=== PATIENT | female | born 1975 | race Two or more races ===

== ENCOUNTER 2023-03-01 11:05 | Emergency (ER) | payer BC, SELFPAY ==
[2023-03-01 11:13] VITALS: BP 142/81; PULSE 70; RESP 20; TEMP 36.5; O2SAT 99; BMI 33.3
--- NOTE | 2023-03-01 11:27 | CT_ITS ---
The [address] [address] Patient Name: LUCI CARLIN MRN: [id number] date: 1975 Sex: F Assigned Patient Location: ER Current Patient Location: ER Accession/Order Number: [id number] Exam Date: 03/01/2023 11:30 Report Date: 03/01/2023 11:57 At the request of: NYLA DEVLIN Procedure: CT head/brain wo con CT head/brain wo con, 03/01/2023 11:30 AM EST INDICATION: BROWNE intermittent for three months COMPARISON: Noncontrast CT of the head 10/21/2012 TECHNIQUE: Axial CT images of the brain from skull base to vertex, including portions of the face and sinuses, were obtained without contrast. Multiplanar reformatted images were generated and reviewed as needed. FINDINGS: No intracranial mass, hydrocephalus, midline shift or acute hemorrhage. No extra-axial collection. Kirkland-white matter differentiation is preserved. The paranasal sinuses and mastoid air cells are clear. Orbits are within normal limits. No acute skull fracture. CT/CT head/brain wo con IMPRESSION: No acute intracranial abnormality. Electronically authenticated by: ZEYAD DAVIS Date: 03/01/2023 11:57
--- NOTE | 2023-03-01 11:32 | ED_ITS ---
HPI - Eye Problem General Chief complaint: Eye Problems Stated complaint: eye red/headache Time Seen by Provider: 03/01/23 11:10 Source: patient Mode of arrival: walk-in History of Present Illness HPI Narrative: 47-year-old female presents for two issues. 1st she's had intermittent right frontal headache for three months. today she noticed that the lateral part of white part of her right eye is red. There was no trauma. No cough or vomiting or heavy sneezing. The eyeball itself doesn't hurt and she is not on blood thinners. Related Data Previous Rx's Medication Instructions Recorded fxnlpbfjxe-bquwfltlxaqxv-nkfggxlg 1 cap PO Q6H PRN pain #20 caps 03/01/23 50 mg-300 mg-40 mg capsule (Fioricet) Allergies Allergy/AdvReac Type Severity Reaction Status Date / Time No Known Drug Allergies Allergy Verified 03/01/23 11:15 Review of Systems ROS Narrative A ten point review of systems is negative except as noted above. Exam Narrative Exam Narrative: Nurses note and vital signs reviewed and patient is not hypoxic. General: The patient appears well and in no apparent distress. Patient is resting comfortably on cart. Skin: Warm, dry, no pallor noted. There is no rash noted. Head: Normocephalic, atraumatic Eye: left eye appears normal. Right has some conjunctival hemorrhage laterally. Pupils are round and reactive to light. Extraocular movements are intact. Ears, Nose, Mouth, and Throat: oral mucosa is moist. Nares patent. Cardiovascular: Regular Rate and Rhythm Respiratory: Patient is in no distress, no accessory muscle use, lungs are clear to auscultation, no wheezing, rales or rhonchi Back: non-tender GI: soft and nontender Musculoskeletal: The patient has no evidence of calf tenderness, no pitting edema, symmetrical pulses noted bilaterally Neurological: A&O, normal speech Psychiatric: Cooperative Constitutional Vital Signs, click to edit/add: Last Vital Signs Temp 97.7 F 03/01/23 11:13 Pulse 70 03/01/23 11:13 Resp 20 03/01/23 11:13 BP 142/81 H 03/01/23 11:13 Pulse Ox 99 03/01/23 11:13 O2 Del Method Room Air 03/01/23 11:13 Course Vital Signs Vital signs: Vital Signs Temperature 97.7 F 03/01/23 11:13 Pulse Rate 70 03/01/23 11:13 Respiratory Rate 20 03/01/23 11:13 Blood Pressure 142/81 H 03/01/23 11:13 Pulse Oximetry 99 03/01/23 11:13 Oxygen Delivery Method Room Air 03/01/23 11:13 Temperature 97.7 F 03/01/23 11:13 Pulse Rate 70 03/01/23 11:13 Respiratory Rate 20 03/01/23 11:13 Blood Pressure 142/81 H 03/01/23 11:13 Pulse Oximetry 99 03/01/23 11:13 Oxygen Delivery Method Room Air 03/01/23 11:13 MDM - Eye Problem MDM Narrative Medical decision making narrative: CAT scan shows no acute findings. Separately she has a subconjunctival hemo rrhage and she was reassured. Treatment diagnosis and follow-up were discussed with the patient. Differential Diagnosis Differential diagnosis: Likely corneal abrasion, conjunctivitis, acute iritis, hyphema and subconjunctival hemorrhage Imaging Data CT scan - head: Radiologist's impression: Procedure: CT head/brain wo con CT head/brain wo con, 03/01/2023 11:30 AM EST INDICATION: BROWNE intermittent for three months COMPARISON: Noncontrast CT of the head 10/21/2012 TECHNIQUE: Axial CT images of the brain from skull base to vertex, including portions of the face and sinuses, were obtained without contrast. Multiplanar reformatted images were generated and reviewed as needed. FINDINGS: No intracranial mass, hydrocephalus, midline shift or acute hemorrhage. No extra-axial collection. Kirkland-white matter differentiation is preserved. The paranasal sinuses and mastoid air cells are clear. Orbits are within normal limits. No acute skull fracture. IMPRESSION: No acute intracranial abnormality. Electronically authenticated by: ZEYAD DAVSI Date: 03/01/2023 11:57 Discharge Plan Discharge Chief Complaint: Eye Problems Clinical Impression: Subconjunctival hemorrhage, Headache Patient Disposition: Home, Self-Care Time of Disposition Decision: 12:08 Condition: Good Mode of Transportation: Private Vehicle Prescriptions / Home Meds: New qmtnauyjyn-wctrnzsdyfjdu-hade [Fioricet] 50-300-40 mg capsule 1 cap PO Q6H PRN (Reason: pain) Qty: 20 0RF Instructions: Subconjunctival Hemorrhage (ED), Acute Headache (ED) Stand Alone Forms: Portal Instructions Referrals: Pura Donovan MD [Primary Care Provider] - 1 week
== END 2023-03-01 12:28 | disposition home or self-care (01) ==
PROVIDERS: Emergency Provider Emergency Medicine; PCP Family Medicine
DX: R51.9 Headache, unspecified (principal); H11.31 Conjunctival hemorrhage, right eye
CPT/HCPCS: 70450; 99284